=== PATIENT | female | born 1975 | race Caucasian/White ===

== ENCOUNTER → 2016-08-31 | Outpatient (CLI) | payer MEDICAID ==
[2016-08-31 08:45] LABS: Basophils % (A) 0 %; CH 29.4; CHCM 33.6; Eosinophils # (A) 0.2 k/uL (0-0.7); Eosinophils % (A) 3 %; HCT 42.5 % (34.0-46.0); HDW 2.46; HGB 13.8 gm/dL (11.4-16.0); Luc # (Auto) 0.22; Luc % (Auto) 3; Lymphocytes # (A) 2.5 k/uL (1.0-4.8); Lymphocytes % (A) 37 %; MCH 28.6 pg (25.0-35.0); MCHC 32.5 g/dL (31.0-37.0); Mean Platelet Volume 6.8; Monocytes # (A) 0.4 k/uL (0-1.0); Monocytes % (A) 5 %; Neutrophils # (A) 3.5 k/uL (1.3-7.7); Neutrophils % (A) 51 %; RBC 4.83 m/uL (3.80-5.40); RDW 12.8 % (11.5-15.5); WBC 6.7 k/uL (3.8-10.6); WBC (Perox) 7.01
[2016-08-31 09:12] LABS: ALT 30 U/L (9-52); AST 21 U/L (14-36); Alkaline Phosphatase 46 U/L (38-126); Anion Gap 11 mmol/L; Blood Urea Nitrogen 11 mg/dL (7-17); Calcium 9.6 mg/dL (8.4-10.2); Carbon Dioxide 25 mmol/L (22-30); Chloride 106 mmol/L (98-107); Cholesterol 223 mg/dL (<200); Glucose 97 mg/dL (74-99); HDL Cholesterol 54 mg/dL (40-60); Non-African American GFR(MDRD) >60 (>60 ml/min/1.73 sqM); Potassium 4.6 mmol/L (3.5-5.1); Sodium 142 mmol/L (137-145); Total Bilirubin 0.7 mg/dL (0.2-1.3); Total Protein 7.4 g/dL (6.3-8.2); Triglycerides 134 mg/dL (<150)
== END | disposition home or self-care (01) ==
LOC: LABWHC1 08:26
PROVIDERS: ATTEND Family Medicine
DX: Z00.01 Encounter for general adult medical examination with abnormal findings (principal); E78.2 Mixed hyperlipidemia
CPT/HCPCS: 36415; 80053; 80061; 85025

== ENCOUNTER 2020-04-07 11:10 | Emergency (ER) | payer MEDICAID, OTHER ==
[2020-04-07 11:18] VITALS: BP 132/89; PULSE 103; RESP 18; TEMP 97.9
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
== END 2020-04-07 11:53 | disposition home or self-care (01) ==
LOC: EC 11:10
DX: S00.83XA Contusion of other part of head, initial encounter (principal); Y04.8XXA Assault by other bodily force, initial encounter; Y92.69 Other specified industrial and construction area as the place of occurrence of the external cause; Y99.0 Civilian activity done for income or pay
CPT/HCPCS: 99283

== ENCOUNTER → 2020-09-06 | Outpatient (CLI) | payer MEDICAID ==
--- NOTE | 2020-09-07 02:34 | MR ---
EXAMINATION TYPE: MR hips BILAT wo con DATE OF EXAM: 09/06/2020 COMPARISON: 11/16/2010 HISTORY: Bilateral hip pain Multiplanar multiecho imaging of the hips and pelvis was performed without contrast. FINDINGS: The pelvic ring appears intact. The proximal femurs are intact. There is no evidence of hip dysplasia . Hip joint spaces are fairly symmetric. There is mixed signal 1.7 cm rounded lesion in the right fem oral neck which is stable compared to old exam and probably related to ossifying fibroma or bone eze nd. There is no evidence of avascular necrosis. Signal pattern in the femoral heads is normal. The bladder distends smoothly. There is no evidence of a pelvic mass. There is small amount of free f luid in the pelvis. This could be physiologic. Hip joint spaces are fairly well-maintained. There is no evidence of a fracture. I see no focal bone destruction. There is no evidence of a soft tissue mas s. Muscle structures are fairly symmetric. The sacroiliac joints appear normal. There is no evidence of any significant hip joint effusion. IMPRESSION: Negative MR scan of the hips. There is benign lesion in the right femoral neck. There is small amount of fluid in the pelvis that could be physiologic. There is clearing of the left side 3.5 cm pelvic cyst compared to old exam.
== END | disposition home or self-care (01) ==
LOC: RADMRIMAIN 06:55
PROVIDERS: ATTEND Orthopaedic Surgery
DX: M25.552 Pain in left hip (principal); M89.8X5 Other specified disorders of bone, thigh

== ENCOUNTER → 2020-09-27 | Outpatient (CLI) | payer MEDICAID ==
--- NOTE | 2020-09-28 07:34 | MR ---
EXAMINATION TYPE: MR lumbar spine wo con DATE OF EXAM: 09/27/2020 COMPARISON: [facility] MRI lumbar spine November 16, 2010 HISTORY: Low back pain and left hip pain for several years. TECHNIQUE: Multiplanar, multisequence imaging of the lumbar spine is performed without IV contrast. FINDINGS: Sagittal images of the lumbar spine show vertebral body heights to appear satisfactory. Sli ght grade 1 retrolisthesis L3 on L4 redemonstrated. There is disc desiccation L3-L4 and L4-L5 levels redemonstrated. Mild disc space narrowing L4-L5 level with posterior annular tear is redemonstrated. The conus medullaris is normal in position and signal ending inferior L1 level. There is slight cent ral canal prominence possible small syrinx at T12 level sagittal image 9 extending to T12-L1 disc spa ce axial image 27. Correlate clinically. This is unchanged from prior. Mild multilevel anterior spurr ing. Heterogeneous Modic type I and type II endplate changes right L4-L5 level are now present. Axial images at the T12-L1 through the L2-L3 levels remain within normal limits. Axial images at the L3-L4 level show subtle spondylolisthesis and mild to moderate broad disc bulge w ith tiny left paracentral disc protrusion component minimally effacing anterior thecal sac, there is a patent bilateral neural foramina. No significant change from prior. Axial images at the L4-L5 level show mild facet degenerative changes bilaterally. There is moderate b road disc bulge with mild effacement of the anterior and bilateral posterior lateral thecal sac and m ild to moderate bilateral neural foraminal narrowing with interval progressive degenerative findings noted from 2011 MRI. Axial images at L5-S1 level show mild to moderate facet degenerative changes bilaterally. There is le ft paracentral disc protrusion axial image 2 identified minimally effacing anterolateral thecal sac. Patent bilateral neural foramina. Interval degenerative progression noted. Paraspinal muscle bulk is maintained. IMPRESSION: Multilevel degenerative changes mid to lower lumbar spine as detailed above, interval deg enerative progression in the lower lumbar spine noted from 2011 MRI.
== END | disposition home or self-care (01) ==
LOC: RADMRIMAIN 16:37
PROVIDERS: ATTEND Physical Medicine & Rehabilitation
DX: M43.16 Spondylolisthesis, lumbar region (principal); M47.817 Spondylosis without myelopathy or radiculopathy, lumbosacral region; M51.27 Other intervertebral disc displacement, lumbosacral region; M99.73 Connective tissue and disc stenosis of intervertebral foramina of lumbar region; M51.36 Other intervertebral disc degeneration, lumbar region
CPT/HCPCS: 72148

== ENCOUNTER → 2020-11-08 | Outpatient (CLI) | payer MEDICAID ==
--- NOTE | 2020-11-08 10:33 | MR ---
EXAMINATION TYPE: MR thoracic spine wo/w con DATE OF EXAM: 11/08/2020 COMPARISON: 09/27/2020 HISTORY: Mid back pain, abnormal mri of lspine, syrnix CONTRAST: Standard multiplanar, multisequence MRI departmental protocol utilizing 9 mL intravenous Gadavist gisella olinium contrast. FINDINGS: T5-T6 there is a left paracentral disc protrusion or tiny herniation. Mild effacement of thecal sac a nd encroachment upon the anterior margin the spinal cord. At T7-T8 there is left paracentral disc protrusion. No foraminal encroachment or canal stenosis. At T9-T10 there is a small central and left paracentral disc herniation. No spinal cord contact. Mild thecal sac compression. No neural foraminal encroachment Remaining levels demonstrate no diagnostic evidence of disc herniation or canal stenosis. No foramina l encroachment. Incidental note is made of multiple sagittal disc bulges and degenerative disc disease within the cer vical spine. No abnormal signal seen within the visualized spinal cord post contrast images limited by motion narendra fact but no pathologic enhancement suspected. Prominent central canal noted. IMPRESSION: 1. At T5-T6 there is a left paracentral disc herniation with effacement of thecal sac encroachment up on the anterior margin of the spinal cord. 2.At T7-T8 there is left paracentral disc protrusion. No foraminal encroachment. No Canal stenosis. 3. At T9-T10 there is a small central left paracentral disc herniation. No canal stenosis or foramina l encroachment. 4. Signal noted within the distal spinal cord felt to be most typical of a prominent central canal. 5. Sagittal disc bulges within the cervical spine with degenerative disc disease noted.
== END | disposition home or self-care (01) ==
LOC: RADMRIMAIN 07:44
PROVIDERS: ATTEND Physical Medicine & Rehabilitation
DX: M51.24 Other intervertebral disc displacement, thoracic region (principal); M50.30 Other cervical disc degeneration, unspecified cervical region; M50.20 Other cervical disc displacement, unspecified cervical region
CPT/HCPCS: 72157; A9585

== ENCOUNTER → 2021-05-08 | Outpatient (CLI) | payer MEDICAID ==
--- NOTE | 2021-05-10 10:46 | MM ---
Reason for exam: screening (asymptomatic). Last mammogram was performed 1 year and 2 months ago. History: Taking estrogen for 10 years beginning at age 36. Physical Findings: A clinical breast exam by your physician is recommended on an annual basis and results should be correlated with mammographic findings. MG 3D Screening Mammo W/Cad Bilateral CC and MLO view(s) were taken. Prior study comparison: February 29, 2020, mammogram, performed at [facility]. January 05, 2019, mammogram, performed at [facility]. The breast tissue is heterogeneously dense. This may lower the sensitivity of mammography. There is chronic nodularity in the right breast, increased left MLO upper outer, may be summation. This finding is changed when compared with previous exams. ASSESSMENT: Incomplete: need additional imaging evaluation, BI-RAD 0 RECOMMENDATION: Special view mammogram of the left breast. If lesion persists on supplemental views, image directed ultrasound is recommended. [facility] will attempt to contact patient to return for supplemental views and ultrasound if indicated.
== END | disposition home or self-care (01) ==
LOC: RADMAMWWP 12:50
PROVIDERS: ATTEND Obstetrics & Gynecology
DX: Z12.31 Encounter for screening mammogram for malignant neoplasm of breast (principal)
CPT/HCPCS: 77063; 77067

== ENCOUNTER → 2021-05-14 | Outpatient (CLI) | payer MEDICAID ==
--- NOTE | 2021-05-14 10:23 | MM ---
Reason for exam: additional evaluation requested from abnormal screening. Last mammogram was performed less than 1 month ago. History: Taking estrogen for 10 years beginning at age 36. Physical Findings: Nurse did not find any significant physical abnormalities on exam. MG 3D Work Up W/Cad LT LM and spot compression MLO view(s) were taken of the left breast. Prior study comparison: May 08, 2021, bilateral MG 3d screening mammo w/cad. February 29, 2020, mammogram, performed at [facility]. There are scattered fibroglandular densities. There is no discrete abnormality. No significant new findings when compared with previous films. These results were verbally communicated with the patient and result sheet given to the patient on 05/14/21. ASSESSMENT: Negative, BI-RAD 1 RECOMMENDATION: Return to routine screening mammogram schedule for both breasts.
== END | disposition home or self-care (01) ==
LOC: RADMAMWWP 09:01
PROVIDERS: ATTEND Obstetrics & Gynecology
DX: R92.8 Other abnormal and inconclusive findings on diagnostic imaging of breast (principal)
CPT/HCPCS: 77061; 77065

== ENCOUNTER → 2022-01-05 | Outpatient (CLI) | payer OTHER | END | disposition home or self-care (01) | LOC: LABMAIN 13:36 | PROVIDERS: ATTEND Family Medicine | DX: U07.1 COVID-19 (principal) | CPT/HCPCS: 87635 ==

== ENCOUNTER → 2022-01-10 | Outpatient (CLI) | payer MEDICAID ==
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
== END | disposition home or self-care (01) ==
LOC: RADMRIMAIN 17:04
PROVIDERS: ATTEND Family Medicine
DX: M50.322 Other cervical disc degeneration at C5-C6 level (principal); M47.812 Spondylosis without myelopathy or radiculopathy, cervical region; M43.12 Spondylolisthesis, cervical region
CPT/HCPCS: 72141

== ENCOUNTER 2022-02-28 08:27 | Day surgery (SDC) | payer MEDICAID ==
[2022-02-26 14:42] VITALS: BMI 34.3
[~2022-02-28 08:27] MED LIST: LACTATED RINGERS 1,000 ML IV SCH; LIDOCAINE 1% (10MG/ML) FOR IV START INTRADERMA PRN
[2022-02-28 09:13] VITALS: RESP 16; TEMP 97.8
[2022-02-28] MEDS ORDERED: LIDOCAINE 1% (10MG/ML) FOR IV START INTRADERMA ONE (09:20)
[2022-02-28] MEDS ORDERED: MIDAZOLAM 2 MG/2 ML VIAL ONE (09:45)
[2022-02-28] MEDS ORDERED: fentaNYL (PF) 50 MCG/ML 2 ML AMP ONE (09:45)
[2022-02-28] MEDS ORDERED: IOPAMIDOL M200 10 ML VIAL ONE (09:45)
[2022-02-28] MEDS ORDERED: DEXAMETHASONE SOD PHOSPHATE 10 MG/ML 1 ML VIAL ONE (09:45)
[2022-02-28] MEDS ORDERED: IV FLUID CONTINUATION 1,000 ML IV ONE (10:06)
--- NOTE | 2022-02-28 10:09 | P.PCN ---
Date of Procedure: 02/28/22 Procedure(s) Performed: PREOPERATIVE DIAGNOSIS: 1-cervical radiculopathy . 2-cervical spinal stenosis. 3-cervical spondylosis with cervical facet arthropathy POSTOPERATIVE DIAGNOSIS: Same as preoperative diagnoses. PROCEDURE 1. Transforaminal epidural steroid injection under fluoroscopic guidance at left C5-6 level. (Fluoroscopy images stored on file in the radiology Department ) 2. Cervical epidurogram . ANESTHESIA: Local with 1% lidocaine 3 ml , moderate sedation with intravenous Versed 1 mg and fentanyle 50 micrograms. Sedation start time : 947 . Sedation. stop time : 100 . EBL: Minimal PROCEDURE INDICATION: The patient with neck pain and radiculopathy symptoms unresponsive to conservative treatment. PROCEDURE DESCRIPTION / TECHNIQUE: The patient was seen and identified in the preoperative area. Risks, benefits, complications, and alternatives were discussed with the patient. The patient agreed to proceed with the procedure and signed the consent. IV was started, and vital signs were stable. Patient was taken to the OR and time out was completed. The patient was placed in the lateral position on procedure table ( left side up ) . The left cervical area was prepped and draped in the usual sterile fashion. Critical pause was taken. Vital signs were closely monitored during the procedure. Conscious sedation was used during the procedure to decrease patient s anxiety. Using oblique fluoroscopy, the chin of the `SwatiTai dog at left C5-6 level was identified, and the skin and deeper tissues just below was localized with 1% lidocaine. Subsequently, a 22-gauge 3.5-inch spinal needle was advanced under a tunneled view fluoroscopic guidance just underneath the chin of the `Tiffaniey dog at the left C5-6 Under lateral fluoroscopy, the needle was then advanced to the posterior border of the interforaminal space. After negative aspiration of CSF and blood and with no paresthesias, 1 mL Isovue 200 contrast dye was injected excellent epidurogram and outlining of the nerve root Subsequently, 3 mL of block solution containing 20 mg Dexamethason and 1 mL of 0.9% normal saline PF was injected. Needle was removed intact. At the end of the procedure, skin was cleansed, and bandages were applied. COMPLICATIONS:none DISPOSITION / PLANS: The patient was placed in a supine position and transferred to the recovery area in a stable condition for observation. There was no evidence of lower extremity motor or sensory deficit after the procedure. Patient was discharged from the recovery room after meeting discharge criteria. Home discharge instructions were given to the patient by the staff. The patient was reexamined prior to discharge.
[2022-02-28 10:20] VITALS: BP 114/79; PULSE 73
--- NOTE | 2022-02-28 10:32 | FL ---
Intraoperative/procedural fluoroscopic services were provided. Total fluoroscopy time is 9 seconds wi th a total of 4 submitted images to PACS. Please see the operative/procedural note for further detail s.
== END 2022-02-28 10:38 ==
LOC: ORPAIN 08:27
PROVIDERS: ATTEND Specialist
DX: M47.22 Other spondylosis with radiculopathy, cervical region (principal); M48.02 Spinal stenosis, cervical region
CPT/HCPCS: 64479; 99152; J2250; J1100; J3010; Q9966

== ENCOUNTER → 2022-03-27 | Outpatient (CLI) | payer MEDICAID ==
--- NOTE | 2022-03-27 14:11 | XR ---
EXAMINATION TYPE: XR pelvis AP view DATE OF EXAM: 03/27/2022 1:58 PM INDICATION: Patient age:Female; 47 years old; Reason for study: [id number] LOW BACK PAIN; [facility]. COMPARISON: MRI bilateral hips 09/06/2020, right hip radiograph 10/07/2018. TECHNIQUE: The pelvis was examined in a single projection. FINDINGS: There is no evidence of fracture or dislocation. There is no soft tissue abnormality. Heter ogenous sclerotic lesion within the right femoral neck corresponds to a benign lesion on MRI. Pelvic phleboliths identified. IMPRESSION: 1. No acute osseous pathology. 2. Stable benign lesion within the right femoral neck.
[2022-03-27 18:45] LABS: Uric Acid 3.8 mg/dL (2.9-7.7)
[2022-03-27 20:58] LABS: Cyclic Citrull Pep IgG Unit <0.5 U/mL; Cyclic Citrullinated Pep IgG NEGATIVE (NEGATIVE)
[2022-03-28 10:58] LABS: HLA B27 NEGATIVE
[2022-03-28 12:50] LABS: Angiotensin-1 Converting Enz. 29 U/L (8-52)
== END | disposition home or self-care (01) ==
LOC: LABWHC1 11:24
PROVIDERS: ATTEND Internal Medicine Rheumatology
DX: M54.50 Low back pain, unspecified (principal); M13.0 Polyarthritis, unspecified
CPT/HCPCS: 36415; 72170; 82164; 82550; 83520; 84550; 86038; 86200; 86812

== ENCOUNTER 2022-04-04 07:46 | Day surgery (SDC) | payer MEDICAID ==
[2022-04-03 10:44] VITALS: BMI 33.9
[2022-04-04 08:11] VITALS: RESP 16; TEMP 98.1
[2022-04-04] MEDS ORDERED: DEXAMETHASONE SOD PHOSPHATE 10 MG/ML 1 ML VIAL ONE (08:36)
[2022-04-04] MEDS ORDERED: MIDAZOLAM 2 MG/2 ML VIAL ONE (08:36)
[2022-04-04] MEDS ORDERED: fentaNYL (PF) 50 MCG/ML 2 ML AMP ONE (08:36)
[2022-04-04] MEDS ORDERED: IOPAMIDOL M200 10 ML VIAL ONE (08:36)
--- NOTE | 2022-04-04 08:49 | P.PCN ---
Date of Procedure: 04/04/22 Procedure(s) Performed: . PROCEDURE 1. Cervical epidural steroid injection under fluoroscopic guidance, C5-6 (fluoroscopy images available in the radiology department ) 2. Cervical epidurogram. PREOPERATIVE DIAGNOSIS: 1- Cervical spinal stenosis 2- Cervical radiculopathy., 3-cervical spondylosis with cervical Facet arthropathy without myelopathy.4- cervical spinal stenosis POSTOPERATIVE DIAGNOSIS: : 1- Cervical spinal stenosis, 2- Cervical radiculopathy. 3-,cervical spondylosis with cervical Facet arthropathy without myelopathy. 4-cervical spinal stenosis ANESTHESIA: moderate sedation, with Versed 2 mg and Fentanyl 50 mcg. Sedation start time : 0 840 Sedation end time : 0 846 EBL 0 PROCEDURE INDICATION: The patient with neck pain and radiculitis unresponsive to conservative treatment consents for procedure. PROCEDURE DESCRIPTION / TECHNIQUE: The patient was seen and identified in the preoperative area. Risks, benefits, complications, including but not limited to infections ,bleeding , allergic reactions to the medications ,and not complete pain releife, and alternatives were discussed with the patient, the patient agreed to proceed with the procedure and signed the consent. Patient was taken to the OR and time out was completed. The patient was placed in the prone position on the procedure table. A pillow was placed under the patients chest to increase the cervical interlaminar space. The cervical area was prepped and draped in the usual sterile fashion. Vital signs were closely monitored during the procedure. Conscious sedation was used during the procedure to decrease patients anxiety. Using anterior-posterior fluoroscopy, the C5-6 interlaminar space was identified and the skin over this site was marked and then infiltrated with 1% lidocaine subcutaneously. Subsequently, a 20-gauge 3-1/2-inch Tuohy epidural needle was inserted and advanced toward the epidural space by means of the ``hanging-drop technique and guided by AP and lateral fluoroscopy. The correct needle position in the epidural space was verified with the injection of 1 mL of the water soluble contrast dye Isovue-200 and observing an excellent epidurogram with the epidural spread of the dye, after negative aspiration for blood and CSF and in the absence of paresthesias. then, mixture containing 20 mg Dexamethasone and1 ml of preservative-free normal saline injected and a washout of epidurogram was seen. Needle was withdrawn intact, skin was cleansed, and bandages were applied. Complications= none. Disposition= patient was placed in supine position and transferred to the recovery room area in stable condition and there was no evidence of upper or lower extremity motor or sensory deficit after the procedure patient was discharged from recovery room after discharge criteria met and home discharge instructions was given by the staff and patient will follow with the pain clinic in 2-4 weeks
[2022-04-04] MEDS ORDERED: IV FLUID CONTINUATION 1,000 ML IV ONE (08:52)
[2022-04-04 09:09] VITALS: BP 122/84; PULSE 75
--- NOTE | 2022-04-04 12:59 | FL ---
EXAMINATION TYPE: FL guided pain mgmt statistic DATE OF EXAM: 04/04/2022 FLUOROSCOPY Fluoroscopy time of 2 seconds was used during cervical epidural steroid injection. 1 image/s documen t/s the procedure.
== END 2022-04-04 09:21 | disposition home or self-care (01) ==
LOC: ORPAIN 07:46
PROVIDERS: ATTEND Specialist
DX: M48.02 Spinal stenosis, cervical region (principal); M47.22 Other spondylosis with radiculopathy, cervical region
CPT/HCPCS: 62321; J2250; J1100; J3010; Q9966

== ENCOUNTER → 2022-04-24 | Outpatient (CLI) | payer MEDICAID ==
[2022-04-24 08:16] VITALS: BP 120/87; PULSE 94; RESP 18; TEMP 98.5
--- NOTE | 2022-04-24 14:40 | P.PAINPG ---
PQRS Measure Charge Sheet Comment: A 47 yr old female with a history of severe and chronic neck pain secondary to cervical DDD and spondylosis with facet arthropathy without myelopathy presents today for evaluation s/p ELIGIO C5-C6. Pt states she received 100% pain relief x 5 days s/p procedure. Pain level is currently at 3/10 in intensity, constant, localized in the numbness shooting towards L shoulder, arms & fingers. Pain is provoked by lifting and rotating. Pain is alleviated with Pt x 5 wks, massage therapy integrated w PT, chiropractic treatment x 2 visits for readjustments, heat, ice, medications (Celebrex, Neurontin), repositioning and rest. Interventional pain procedures completed include ELIGIO C5-C6 Patient is currently on Celebrex, Neurontin Patient denies any side effects of the medication(s), denies excessive drowsiness or sleepiness, denies suicidal ideation and reports that the current pain medication is helping to control the pain and improve activities of daily living. Patient denies any motor or sensory deficits. Patient denies any fever or night sweats, denies any change in the bowel movements or urination. Physical Examination: -Constitutional: Cooperative. Not in acute distress . - Neurologic: Cranial nerve II to XII intact. No focal neurological deficits. - Psychatric: Alert & oriented x 3. Matching mood & appropriate affect. Judgment and insight intact. - Musculoskeletal: Cervical spine: Muscle bulk/ tone/ strength in the bilateral upper extremities normal Vertebral body tenderness to palpation over Spurling test positive Distraction test positive Facet loading test positive tingling over L C4-C5, C5-C6 facets Thoracic spine Muscle bulk / tone/ strength in the bilateral paraspinal muscles normal Vertebral body tender to palpation over Facet loading test positive Lumbar spine: Motor bulk/ tone/ strength lower extremities , thigh and legs : 5/5 Deep tendon reflexes : Normal Knee Jerk. Normal Ankle Jerk . Vertebral body tenderness to palpation over Lumbar Facet Loading Test positive Straight Leg Raise: positive at 30 degrees right side/ left side Gaenslen's Test positive Sacral spine : Severe tenderness over the Sacroiliac joint: right side / left side Range of motion: Flexion of the lumbar spine <60 degrees Range of motion: Extension of the lumbar spine <20 degrees Gaenslen's Test positive Sheela test: positive right side / left side Thigh Thrust Test Sacral Thrust Test Assessment and plan: Chronic neck pain secondary to cervical degenerative disc disease, spondylosis with facet arthropathy without myelopathy Recommendation of L MBB C4-C5, C5-C6 #1. May need a series of injections, up until RFA, for optimal pain relief. Risks, benefits of procedure discussed and pt verbalized understanding. Admits to anticoagulant use or medical history of diabetes. Protocol for discontinuation/ continuation of medications winsome procedure discussed. All patient questions answered I have spent less than 30 minutes on patient care today. Dr Peres was available by phone for the evaluation of this patient. The time was used to review the medical records including relevant urine studies and Prescription history (MAPs), review of the available imaging, evaluation and examination of the patient, coordination of care with the medical staff and if applicable referring physicians, as well as creation of the medical record PQRS Narrative: Hx Alcohol Use (MH) No Home Medications: Ambulatory Orders Ashlyna 1 tab PO DAILY 02/26/22 Aspirin [[place] Aspirin EC] 81 mg PO DAILY 02/26/22 Atorvastatin [Lipitor] 20 mg PO DAILY 02/26/22 Celecoxib [CeleBREX] 200 mg PO BID 02/26/22 Cholecalciferol (Vitamin D3) [Vitamin D3 (125 MCG = 5,000 IU)] 125 mcg PO DAILY 02/26/22 Famotidine [Pepcid] 20 mg PO DAILY 02/26/22 Fexofenadine HCl [Audra Allergy] 180 mg PO DAILY 02/26/22 Gabapentin [Neurontin] 300 mg PO BID 02/26/22 Losartan Potassium [Cozaar] 100 mg PO DAILY 02/26/22 Pantoprazole [Protonix] 40 mg PO DAILY 02/26/22 hydroCHLOROthiazide 12.5 mg PO DAILY 02/26/22 Controlled Substance Measures - Controlled Substance Measures Is patient prescribed a controlled substance at discharge?: No
== END ==
LOC: PNWHC3 07:43
PROVIDERS: ATTEND Specialist
DX: M47.812 Spondylosis without myelopathy or radiculopathy, cervical region (principal); M50.30 Other cervical disc degeneration, unspecified cervical region; G89.29 Other chronic pain; Z79.01 Long term (current) use of anticoagulants; E11.9 Type 2 diabetes mellitus without complications; Z79.4 Long term (current) use of insulin
CPT/HCPCS: 99211

== ENCOUNTER → 2022-05-10 | Outpatient (CLI) | payer MEDICAID ==
--- NOTE | 2022-05-10 18:43 | MM ---
Reason for Exam: Screening (asymptomatic). Last mammogram was performed 1 year(s) and 1 month(s) ago. Patient History: Menarche at age 11. First Full-Term at age 22. Hysterectomy at age 36. Currently using Estrogen, beginning at age 36 for 10 years. Risk Values: Evelia 5 year model risk: 0.8%. NCI Lifetime model risk: 8.3%. Prior Study Comparison: 02/29/2020 Screening Mammogram, [facility]. 05/08/2021 Bilateral Screening Mammogram, [facility]. 05/14/2021 Left Diagnostic Mammogram, [facility]. Tissue Density: The breast tissue is heterogeneously dense. This may lower the sensitivity of mammography. Findings: Analyzed By CAD. Asymmetric density superior left MLO view is unchanged from the 2020 exam and does not persist on 3-D images. There is also no correlate on the CC view. Findings compatible with superimposition shadow. No significant change from prior exams. Overall Assessment: Benign, BI-RAD 2 Management: Screening Mammogram of both breasts in 1 year. 1. Patient should continue monthly self breast exams. 2. A clinical breast exam by your physician is recommended on an annual basis. 3. This exam should not preclude additional follow-up of suspicious palpable abnormalities. Electronically signed and approved by: Milla Kearns M.D. Radiologist
== END | disposition home or self-care (01) ==
LOC: RADMAMWWP 06:55
PROVIDERS: ATTEND Obstetrics & Gynecology
DX: Z12.31 Encounter for screening mammogram for malignant neoplasm of breast (principal)
CPT/HCPCS: 77063; 77067

== ENCOUNTER → 2022-08-28 | Outpatient (CLI) | payer MEDICAID ==
[2022-08-28 10:01] VITALS: BP 127/87; PULSE 86; RESP 18; TEMP 98.1
--- NOTE | 2022-08-28 14:38 | P.PAINPG ---
PQRS Measure Charge Sheet Comment: A 47 yr old female with a history of severe and chronic neck pain secondary to cervical DDD and spondylosis with facet arthropathy without myelopathy presents today for evaluation s/p L facet block of the medial branches C4-C5, C5-C6 #1. Pt states she experienced 90 % pain relief x 3 hrs s/p procedure. Pain level is provoked at 6/10 in intensity, constant, localized in the mid to lower BL cervical spine, sore in character w shooting towards the L shoulder, L clavicle and LUE. Pain is provoked by hyperextension. Pain is alleviated with Pt x 4-6 wks in Jan 2022, massage integrated w PT, Ultrasound integrated w PT, chiropractic treatment x 1 in Dec 2021, heat, medications (Celebrex, Neurontin), repositioning and rest. Interventional pain procedures completed include L MBB C4-C6 x1 Patient is currently on Neurontin, Celebrex Patient denies any side effects of the medication(s), denies excessive rasheed wsiness or sleepiness, denies suicidal ideation and reports that the current pain medication is helping to control the pain and improve activities of daily living. Patient denies any motor or sensory deficits. Patient denies any fever or night sweats, denies any change in the bowel movements or urination. Physical Examination: -Constitutional: Cooperative. Not in acute distress . - Neurologic: Cranial nerve II to XII intact. No focal neurological deficits. - Psychatric: Alert & oriented x 3. Matching mood & appropriate affect. Judgment and insight intact. - Musculoskeletal: Cervical spine: Muscle bulk/ tone/ strength in the bilateral upper extremities normal Vertebral body tenderness to palpation over Spurling test positive Distraction test positive Facet loading test positive TTP over L C4-C5, C5-C6 facets Thoracic spine Muscle bulk / tone/ strength in the bilateral paraspinal muscles normal Vertebral body tender to palpation over Facet loading test positive TTP Lumbar spine: Motor bulk/ tone/ strength lower extremities , thigh and legs : 5/5 Deep tendon reflexes : Normal Knee Jerk. Normal Ankle Jerk . Vertebral body tenderness to palpation over Lumbar Facet Loading Test positive Straight Leg Raise: positive at 30 degrees right side/ left side Gaenslen's Test positive Sacral spine : Severe tenderness over the Sacroiliac joint: right side / left side Range of motion: Flexion of the lumbar spine <60 degrees Range of motion: Extension of the lumbar spine <20 degrees Gaenslen's Test positive R / L Sheela test: positive right side / left side Thigh Thrust Test positive R / L Sacral Thrust Test positive R/ L Assessment and plan: Chronic neck pain secondary to cervical DDD, spondylosis with facet arthropathy without myelopathy Recommendation of L facet block of the medial branches C4-C5, C5-C6 #2. May need a series fo injections, up until RFA, for optimal pain relief. Risks, benefits of procedure discussed and pt verbalized understanding. Admits to anticoagulant use or medical history of diabetes. Protocol for discontinuation/ continuation of medications winsome procedure discussed. All questions answered. I have spent less than 30 minutes on patient care today. Dr Peres was available by phone for the evaluation of this patient. The time was used to review the medical records including relevant urine studies and Prescription history (MAPs), review of the available imaging, evaluation and examination of the patient, coordination of care with the medical staff and if applicable referring physicians, as well as creation of the medical record PQRS Narrative: Hx Alcohol Use (MH) No Home Medications: Ambulatory Orders Ashlyna 1 tab PO DAILY 02/26/22 Aspirin [[place] Aspirin EC] 81 mg PO DAILY 02/26/22 Atorvastatin [Lipitor] 20 mg PO DAILY 02/26/22 Celecoxib [CeleBREX] 200 mg PO BID 02/26/22 Cholecalciferol (Vitamin D3) [Vitamin D3 (125 MCG = 5,000 IU)] 125 mcg PO DAILY 02/26/22 Fexofenadine HCl [Audra Allergy] 180 mg PO DAILY 02/26/22 Gabapentin [Neurontin] 300 mg PO BID 02/26/22 Losartan Potassium [Cozaar] 100 mg PO DAILY 02/26/22 Pantoprazole [Protonix] 40 mg PO DAILY 02/26/22 hydroCHLOROthiazide 25 mg PO DAILY 02/26/22 Controlled Substance Measures - Controlled Substance Measures Is patient prescribed a controlled substance at discharge?: No
== END ==
LOC: PNWHC3 09:28
PROVIDERS: ATTEND Specialist
DX: M50.30 Other cervical disc degeneration, unspecified cervical region (principal); M47.812 Spondylosis without myelopathy or radiculopathy, cervical region; G89.29 Other chronic pain; Z79.82 Long term (current) use of aspirin
CPT/HCPCS: 99211

== ENCOUNTER 2022-09-24 07:21 | Day surgery (SDC) | payer MEDICAID ==
[2022-09-18 13:59] VITALS: BMI 33.4
[2022-09-24] MEDS ORDERED: LACTATED RINGERS 1,000 ML IV SCH (07:47)
[2022-09-24] MEDS ORDERED: LIDOCAINE 1% (10MG/ML) FOR IV START INTRADERMA PRN (07:47)
[2022-09-24 07:57] VITALS: TEMP 97
[2022-09-24] MEDS ORDERED: LACTATED RINGERS 1,000 ML IV ONE (08:04)
[2022-09-24] MEDS ORDERED: fentaNYL (PF) 50 MCG/ML 2 ML AMP ONE (08:42)
[2022-09-24] MEDS ORDERED: ROPIVACAINE 5 MG/ML 20 ML AMPULE ONE (08:42)
[2022-09-24] MEDS ORDERED: methylPREDNISolone ACETATE 40 MG/ML 1 ML VIAL ONE (08:42)
[2022-09-24] MEDS ORDERED: MIDAZOLAM 2 MG/2 ML VIAL ONE (08:42)
--- NOTE | 2022-09-24 09:00 | P.PCN ---
Date of Procedure: 09/24/22 Procedure(s) Performed: PREOPERATIVE DIAGNOSIS: 1-Cervical Spondylosis with Facet Arthropathy.without myelopathy. 2-cervical degenerative disc disease POSTOPERATIVE DIAGNOSIS:1-cervical spondylosis with facet arthropathy without myelopathy. 2-cervical degenerative disc disease PROCEDURES: Diagnostic bilateral Left C4 , C5 , and C6 medial branch blocks, with fluoroscopic guidance (fluoroscopy images available in radiology department ) ( to target the facet joint at bilateral Left C4- 5 , C5- 6 ) ANESTHESIA: moderate sedation with Versed 2 mg , and fentanyl 50 micrograms Sedation the started at 0 847, ended at 0856 EBL: Minimal PROCEDURE INDICATION: The patient with neck pain secondary to cervical arthropathy unresponsive to more conservative treatments. PROCEDURE DESCRIPTION / TECHNIQUE: The patient was seen and identified in the preoperative area. Risks, benefits, complications, and alternatives were discussed with the patient, the patient agreed to proceed with the procedure and signed the consent. IV was started. Vital signs remained stable throughout the procedure. Patient was taken to the OR and time out was completed. The patient was placed in the Lateral position ( left side up ) on the procedure table. . The cervical area was prepped and draped in the usual sterile fashion. Critical pause was taken. Vital signs were closely monitored during the procedure. Conscious sedation was used during the procedure to decrease patients anxiety. Using cross-table lateral fluoroscopy, the centroid of the trapezoid of Left C4 , C5 and C6, was identified, marked, and localized with 1% lidocaine 1 ml at each level for skin and Sub Q infiltrations . Subsequently, a 22 G 3 spinal needle was advanced guided by fluoroscopy to the centroid of the trapezoid of Left C4 , C5, C6 . [place] tip position was confirmed at the centroid of the trapezoids of Left C4 , C5 ,C6 with anteroposterior fluoroscopy. Subsequently, 2 ml of preservative-free Ropivacaine 0.5% mixed with Depo-Medrol 40 mg and half ml of the mixture was injected after negative aspiration for blood and CSF. [place] was then removed intact COMPLICATIONS: No acute complications. COMMENTS: DISPOSITION / PLANS: The patient was placed in a supine position and transferred to the recovery area in a stable condition for observation and was discharged from the recovery room after meeting discharge criteria. Home discharge instructions given to the patient by the staff. The patient was reexamined prior to discharge. The patient will schedule a follow up in the clinic in 2-4 weeks.
[2022-09-24] MEDS ORDERED: IV FLUID CONTINUATION 1,000 ML IV ONE (09:02)
[2022-09-24 09:09] VITALS: RESP 16
--- NOTE | 2022-09-24 09:09 | FL ---
Intraoperative/procedural fluoroscopic services were provided. Total fluoroscopy time is 7 seconds wi th a total of 2 submitted images to PACS. Please see the operative/procedural note for further detail s. DAP: [id number]
[2022-09-24 09:27] VITALS: BP 121/71; PULSE 82
== END 2022-09-24 09:47 | disposition home or self-care (01) ==
LOC: ORPAIN 07:21
PROVIDERS: ATTEND Specialist
DX: M50.321 Other cervical disc degeneration at C4-C5 level (principal); M50.322 Other cervical disc degeneration at C5-C6 level; M47.812 Spondylosis without myelopathy or radiculopathy, cervical region
CPT/HCPCS: 64490; 64491; J2250; J1030; J3010; J2795

== ENCOUNTER → 2022-10-17 | Outpatient (CLI) | payer MEDICAID ==
[2022-10-17 08:57] VITALS: BP 116/83; PULSE 83; RESP 18; TEMP 98.6
--- NOTE | 2022-10-17 14:11 | P.PAINPG ---
PQRS Measure Charge Sheet Comment: A 47 yr old female with a history of severe and chronic neck pain secondary to cervical DDD and spondylosis with facet arthropathy without myelopathy presents today for evaluation s/p L facet block of the medial branches C4-C5, C5-C6 #2. Pt states she experienced 100% pain relief x 10 days s/p procedure. Pain level is provoked at 0/10 in intensity. Pt denies provocative factors. Admits that the injections palliated pain completely at this time. Interventional pain procedures completed include L MBB C4-C6 x2 Patient is currently on DENIES Patient denies any side effects of the medication(s), denies excessive drowsiness or sleepiness, denies suicidal ideation and reports that the current pain medication is helping to control the pain and improve activities of daily living. Patient denies any motor or sensory deficits. Patient denies any fever or night sweats, denies any change in the bowel movements or urination. Physical Examination: -Constitutional: Cooperative. Not in acute distress . - Neurologic: Cranial nerve II to XII intact. No focal neurological deficits. - Psychatric: Alert & oriented x 3. Matching mood & appropriate affect. Judgment and insight intact. - Musculoskeletal: Cervical spine: Muscle bulk/ tone/ strength in the bilateral upper extremities normal Vertebral body tenderness to palpation over Spurling test positive Distraction test positive Facet loading test positive TTP Thoracic spine Muscle bulk / tone/ strength in the bilateral paraspinal muscles normal Vertebral body tender to palpation over Facet loading test positive TTP Lumbar spine: Motor bulk/ tone/ strength lower extremities , thigh and legs : 5/5 Deep tendon reflexes : Normal Knee Jerk. Normal Ankle Jerk . Vertebral body tenderness to palpation over Lumbar Facet Loading Test positive Straight Leg Raise: positive at 30 degrees right side/ left side Gaenslen's Test positive Sacral spine : Severe tenderness over the Sacroiliac joint: right side / left side Range of motion: Flexion of the lumbar spine <60 degrees Range of motion: Extension of the lumbar spine <20 degrees Gaenslen's Test positive R / L Sheela test: positive right side / left side Thigh Thrust Test positive R / L Sacral Thrust Test positive R/ L Assessment and plan: Chronic neck pain secondary to cervical DDD, spondylosis with facet arthropathy without myelopathy Pt will monitor her symptoms and may return to clinic on an as needed basis. All questions answered. I have spent less than 30 minutes on patient care today. Dr Peres was available by phone for the evaluation of this patient. The time was used to review the medical records including relevant urine studies and Prescription history (MAPs), review of the available imaging, evaluation and examination of the patient, coordination of care with the medical staff and if applicable referring physicians, as well as creation of the medical record PQRS Narrative: Hx Alcohol Use (MH) No Home Medications: Ambulatory Orders Ashlyna 1 tab PO DAILY 02/26/22 Aspirin [[place] Aspirin EC] 81 mg PO DAILY 02/26/22 Atorvastatin [Lipitor] 20 mg PO DAILY 02/26/22 Celecoxib [CeleBREX] 200 mg PO BID 02/26/22 Cholecalciferol (Vitamin D3) [Vitamin D3 (125 MCG = 5,000 IU)] 125 mcg PO DAILY 02/26/22 Fexofenadine HCl [Audra Allergy] 180 mg PO DAILY 02/26/22 Gabapentin [Neurontin] 300 mg PO BID 02/26/22 Losartan Potassium [Cozaar] 100 mg PO DAILY 02/26/22 Pantoprazole [Protonix] 40 mg PO DAILY 02/26/22 hydroCHLOROthiazide 25 mg PO DAILY 02/26/22 Controlled Substance Measures - Controlled Substance Measures Is patient prescribed a controlled substance at discharge?: No
== END ==
LOC: PNWHC3 07:46
PROVIDERS: ATTEND Specialist
DX: M50.30 Other cervical disc degeneration, unspecified cervical region (principal); M47.812 Spondylosis without myelopathy or radiculopathy, cervical region
CPT/HCPCS: 99211

== ENCOUNTER 2022-12-27 08:11 | Day surgery (SDC) | payer MEDICAID ==
[2022-12-27 08:25] VITALS: RESP 18; TEMP 97.3
[2022-12-27] MEDS ORDERED: ROPIVACAINE 5 MG/ML 20 ML AMPULE ONE (09:31)
[2022-12-27] MEDS ORDERED: methylPREDNISolone ACETATE 40 MG/ML 1 ML VIAL ONE (09:31)
[2022-12-27] MEDS ORDERED: MIDAZOLAM 2 MG/2 ML VIAL ONE (09:32)
[2022-12-27] MEDS ORDERED: fentaNYL (PF) 50 MCG/ML 2 ML AMP ONE (09:32)
--- NOTE | 2022-12-27 09:56 | P.PCN ---
Date of Procedure: 12/27/22 Procedure(s) Performed: PREOPERATIVE DIAGNOSIS: Cervical spondylosis with Facet Arthropathy without myelopathy. POSTOPERATIVE DIAGNOSIS: Cervical spondylosis with Facet Arthropathy without myelopathy. PROCEDURES: Radiofrequency thermocoagulation, left C4, C5, C6 medial branch with Fluroscopy [place](fluoroscopy was available in Radiology department ) (to denervate the facet joint at left C4- 5 , C5- 6 ) ANESTHESIA: Monitored anesthesia care as per anesthesia department . EBL: Minimal PROCEDURE INDICATION: The patient with neck pain secondary to cervical arthropathy who had more than 50% relief of her pain with previous diagnostic cervical medial branch block. PROCEDURE DESCRIPTION / TECHNIQUE: The patient was seen and identified in the preoperative area. Risks, benefits, complications, and alternatives were discussed with the patient, the patient agreed to proceed with the procedure and signed the consent. IV was started. Vital signs remained stable throughout the procedure. Patient was taken to the OR and time out was completed. The patient was placed in the lateral position on the procedure table ( left side up ). The cervical area was prepped and draped in the usual sterile fashion. Critical pause was taken. Vital signs were closely monitored during the procedure. Conscious sedation was used during the procedure to decrease patients anxiety. Using cross-table lateral fluoroscopy, the centroid of the trapezoid of left C4, C5, and C6 were identified, marked, and localized with 1% lidocaine. Subsequently, a 20 [id number] radiofrequency cannula with a 10-mm active tip was advanced guided by fluoroscopy to the centroid of the trapezoid of left C4, C5, and C6 . Needle tip position was confirmed at the centroid of the trapezoids of left C4, C5, and C6 with anteroposterior fluoroscopy. Each site then underwent sensory testing at 50 Hz and 0 to 1 volt and motor testing at 2 Hz and 0 to 3 volt with local stimulation, but no radicular symptoms down the arm. Thereafter each sites underwent radiofrequency thermocoagulation at 80 degrees celsius for 90 seconds after injecting 0.5 ml of PF Ropivacaine 0.5 %. After thermocoagulation, 1 ml of the block solution containing Depo-Medrol 40 mg and 3 mL of preservative-free normal saline was injected at the left C4, C5, and C6 levels after negative aspiration of CSF and blood and with no paresthesias. Cannulas were retracted while injecting lidocaine 1% until the needle is out. Skin was cleansed and bandages were applied. COMPLICATIONS: No acute complications. DISPOSITION / PLANS: The patient was placed in a supine position and transferred to the recovery area in a stable condition for observation and was discharged from the recovery room after meeting discharge criteria. Home discharge instructions given to the patient by the staff. The patient was reexamined prior to discharge. The patient will schedule a follow up in the clinic in 2-4 weeks.
[2022-12-27] MEDS ORDERED: IV FLUID CONTINUATION 900 ML IV ONE (09:57)
[2022-12-27 10:39] VITALS: BP 134/78; PULSE 67
--- NOTE | 2022-12-27 11:05 | FL ---
Fluoroscopy History: NECK PAIN FL time: 8 secs DAP: .[id number]
== END 2022-12-27 10:39 | disposition home or self-care (01) ==
LOC: ORPAIN 08:11
PROVIDERS: ATTEND Specialist
DX: M47.812 Spondylosis without myelopathy or radiculopathy, cervical region (principal); I10 Essential (primary) hypertension; E78.5 Hyperlipidemia, unspecified; K21.9 Gastro-esophageal reflux disease without esophagitis; J45.909 Unspecified asthma, uncomplicated; E11.9 Type 2 diabetes mellitus without complications; Z79.899 Other long term (current) drug therapy
CPT/HCPCS: 64633; 64634; J2250; J1030; J3010; J2795

== ENCOUNTER → 2023-01-20 | Outpatient (CLI) | payer MEDICAID ==
--- NOTE | 2023-01-20 07:58 | P.PN ---
Subjective Progress Note Date: 01/20/23 This follow-up visit for 47 yr old female with a history of severe and chronic neck pain secondary to cervical DDD, and spondylosis with facet arthropathy without myelopathy presents today for evaluation s/p RFA Left medial branches C4-C5, C5-C6 . Pt states she experienced 100% pain relief s/p procedure. Interventional pain procedures completed include RFA L MBB C4-C5, C5-6 Patient is currently on DENIES Patient denies any side effects of the medication(s), denies excessive drowsiness or sleepiness, denies suicidal ideation and reports that the current pain medication is helping to control the pain and improve activities of daily living. Patient denies any motor or sensory deficits. Patient denies any fever or night sweats, denies any change in the bowel movements or urination. Physical Examination: -Constitutional: Cooperative. Not in acute distress . - Neurologic: Cranial nerve II to XII intact. No focal neurological deficits. - Psychatric: Alert & oriented x 3. Matching mood & appropriate affect. Judgment and insight intact. - Musculoskeletal: Cervical spine: Range of motion within normal limits Assessment and plan: Chronic neck pain secondary to cervical DDD, spondylosis with facet arthropathy without myelopathy Patient did 100% pain relief after RFA of the medial branches cervical area Left side , she will follow up in the pain clinic when necessary PQRS Narrative: Hx Alcohol Use (MH) No Home Medications: Ambulatory Orders Ashlyna 1 tab PO DAILY 02/26/22 Aspirin [[place] Aspirin EC] 81 mg PO DAILY 02/26/22 Atorvastatin [Lipitor] 20 mg PO DAILY 02/26/22 Celecoxib [CeleBREX] 200 mg PO BID 02/26/22 Cholecalciferol (Vitamin D3) [Vitamin D3 (125 MCG = 5,000 IU)] 125 mcg PO DAILY 02/26/22 Fexofenadine HCl [Audra Allergy] 180 mg PO DAILY 02/26/22 Gabapentin [Neurontin] 300 mg PO BID 02/26/22 Losartan Potassium [Cozaar] 100 mg PO DAILY 02/26/22 Pantoprazole [Protonix] 40 mg PO DAILY 02/26/22 hydroCHLOROthiazide 25 mg PO DAILY 02/26/22 Controlled Substance Measures - Controlled Substance Measures Is patient prescribed a controlled substance at discharge?: No Objective - Vital Signs Vital signs: Intake & Output 01/19/23 01/20/2323 18:59 06:59 18:59 Weight 195 kg
[2023-01-20 08:01] VITALS: BP 129/85; PULSE 98; RESP 15; TEMP 97.2
== END ==
LOC: PNWHC3 07:42
PROVIDERS: ATTEND Specialist
DX: M50.30 Other cervical disc degeneration, unspecified cervical region (principal); M47.812 Spondylosis without myelopathy or radiculopathy, cervical region; G89.29 Other chronic pain; Z79.82 Long term (current) use of aspirin
CPT/HCPCS: 99211

== ENCOUNTER → 2023-05-15 | Outpatient (CLI) | payer MEDICAID ==
--- NOTE | 2023-05-18 18:26 | MM ---
Reason for Exam: Screening (asymptomatic). Last screening mammogram was performed 12 month(s) ago. Patient History: Menarche at age 11. First Full-Term at age 22. Hysterectomy at age 36. Currently using Estrogen, beginning at age 36 for 10 years. Risk Values: Evelia 5 year model risk: 0.8%. NCI Lifetime model risk: 8.2%. Prior Study Comparison: 05/08/2021 Bilateral Screening Mammogram, [facility]. 05/14/2021 Left Diagnostic Mammogram, [facility]. 05/10/2022 Bilateral MG 3D screening mammo w/cad, [facility]. Tissue Density: The breast tissue is heterogeneously dense. This may lower the sensitivity of mammography. Findings: Analyzed By CAD. Chronic nodularity in the right breast. Unchanged area of asymmetric density superiorly in the left breast. There is no suspicious group of microcalcifications or new suspicious mass in either breast. Overall Assessment: Benign, BI-RAD 2 Management: Screening Mammogram of both breasts in 1 year. . Patient should continue monthly self-breast exams. A clinical breast exam by your physician is recommended on an annual basis. This exam should not preclude additional follow-up of suspicious palpable abnormalities. Note on Evelia scores and lifetime risk: 1. A Evelia score greater than 3% is considered moderate risk. If this is the case, consider specialist referral to assess eligibility for a risk reducing agent. 2. If overall lifetime risk for the development of breast cancer is 20% or higher, the patient may qualify for future screening with alternating mammogram and breast MRI. Electronically signed and approved by: Milla Kearns M.D. Radiologist
== END | disposition home or self-care (01) ==
LOC: RADMAMWWP 09:41
PROVIDERS: ATTEND Obstetrics & Gynecology
DX: Z12.31 Encounter for screening mammogram for malignant neoplasm of breast (principal)
CPT/HCPCS: 77063; 77067

== ENCOUNTER → 2023-06-04 | Outpatient (CLI) | payer MEDICAID ==
--- NOTE | 2023-06-05 13:01 | MR ---
EXAMINATION TYPE: MR cervical spine wo con DATE OF EXAM: 06/04/2023 COMPARISON: 01/10/2022 HISTORY: Neck pain into left shoulder to left fingers, Headaches TECHNIQUE: Multiplanar, multisequence images of the cervical spine were acquired without contrast. Findings: Craniovertebral junction relationships and prevertebral soft tissues are normal. The cervical vertebral segments are normal in height and alignment. There is mild degenerative disc disease at the C3-4, C4-5, C5-6 and C6-7 levels with there is mild di sc space narrowing and posterior disc bulge and spondylosis. There is no cervical disc herniation. Secondary to prominent hypertrophic spurring posteriorly, there is mild cervical stenosis at the C5-6 level. There is prominent hypertrophic spurring of the uncovertebral joints at the C3-4 and C4-5 levels on t he left resulting in moderate to severe neural foraminal stenosis. Similar changes result in mild to moderate neural foraminal stenosis at C5-6 bilaterally. The cervical cord is normal in size and signal intensity. The paraspinal soft tissues are unremarkable. Comparison the prior study reveals no significant interval change. IMPRESSION: 1. Mild multilevel degenerative disc disease. 2. No cervical disc herniation. 3 degeneration of the uncovertebral joints resulting in moderate to severe neural foraminal stenosis , left greater than right, as described above. 4. Normal cervical cord. 5. Mild cervical stenosis at C5-6. 6. No interval change.
== END | disposition home or self-care (01) ==
LOC: RADMRIMAIN 20:45
PROVIDERS: ATTEND Orthopaedic Surgery
DX: M48.02 Spinal stenosis, cervical region (principal); M99.71 Connective tissue and disc stenosis of intervertebral foramina of cervical region; M50.30 Other cervical disc degeneration, unspecified cervical region
CPT/HCPCS: 72141

== ENCOUNTER → 2024-03-29 | Outpatient (CLI) | payer MEDICAID ==
--- NOTE | 2024-03-29 22:12 | MR ---
EXAMINATION TYPE: MR knee LT wo con DATE OF EXAM: 03/29/2024 COMPARISON: NONE HISTORY: Medial pain left knee since December 2023 injury. TECHNIQUE: Multiplanar, multisequence images of the knee is performed without IV contrast. FINDINGS: MEDIAL MENISCUS: Oblique signal posterior horn extending to inferior articular surface. LATERAL MENISCUS: Anterior and posterior horns are intact without tear. CRUCIATE LIGAMENTS: The anterior and posterior cruciate ligaments are intact and unremarkable. COLLATERAL LIGAMENTS: The medial collateral ligament and lateral collateral ligament complex are inta ct. Some fluid signal surrounds the medial collateral ligament. EXTENSOR MECHANISM: Visualized quadriceps and patellar tendons are intact. EFFUSION: Small to moderate size suprapatellar joint effusion. POPLITEAL CYST: Small to moderate size slightly septated popliteal/silveira cyst extending medially raghavendra uring 3.0 cm craniocaudal dimension sagittal image 17. TRICOMPARTMENT SPACES: Mild to moderate tricompartment joint space loss and mild spurring. CARTILAGE: Some cartilaginous loss medial tibiofemoral compartment. BONE MARROW SIGNAL: Small area of diminished T1 and increased T2 signal medial aspect distal medial f emoral condyle. OTHER: Moderate subcutaneous edema superficial infrapatellar level. IMPRESSION: 1. Oblique full-thickness tear posterior horn medial meniscus. 2. Mild MCL sprain injury. 3. Small to moderate sized patellar joint effusion. 4. Small to moderate-sized septated popliteal cyst. 5. Tricompartmental degenerative changes fairly moderate in appearance medial tibiofemoral compartmen t as detailed above. 6. Small focus of abnormal bone marrow edema medial aspect distal medial femoral condyle. [facility], Workstation: [id number], 03/29/2024 10:10 PM
== END | disposition home or self-care (01) ==
LOC: RADMRIMAIN 19:36
PROVIDERS: ATTEND Family Medicine

== ENCOUNTER → 2024-05-18 | Outpatient (CLI) | payer MEDICAID ==
--- NOTE | 2024-05-20 00:34 | US ---
EXAMINATION TYPE: US pelvic complete DATE OF EXAM: 05/18/2024 COMPARISON: CLINICAL INDICATION: Female, 49 years old with history of R10.2 PELVIC AND PERINEAL PAIN; RLQ. Uteru s removed. TECHNIQUE: Transabdominal (TA). Transabdominal grayscale sonographic images of the pelvis were acquired. Doppler imaging: Not performed. FINDINGS: Date of LMP: Unknown EXAM MEASUREMENTS: Right Ovary: 2.5 x 1.4 x 1.2 cm Left Ovary: 2.4 x 1.4 x 1.8 cm 1. Uterus: Surgically absent 2. Endometrium: Surgically absent 3. Right Ovary: wnl 4. Left Ovary: wnl 5. Bilateral Adnexa: no free fluid 6. Posterior cul-de-sac: no free fluid IMPRESSION: 1. No suspicious ultrasound abnormality postsurgical pelvic ultrasound [facility], , 05/20/2024 12:32 AM
== END | disposition home or self-care (01) ==
LOC: RADUSWWP 14:50
PROVIDERS: ATTEND Obstetrics & Gynecology
DX: R10.2 Pelvic and perineal pain (principal)
CPT/HCPCS: 76856

== ENCOUNTER → 2024-05-31 | Outpatient (CLI) | payer MEDICAID ==
--- NOTE | 2024-06-03 13:03 | MM ---
Reason for Exam: Screening (asymptomatic). Last screening mammogram was performed 12 month(s) ago. Patient History: Menarche at age 11. First Full-Term at age 22. Hysterectomy at age 36. Patient has history of breast feeding. Currently using Estrogen, beginning at age 36 for 10 years. Risk Values: Evelia 5 year model risk: 0.9%. NCI Lifetime model risk: 8.0%. Prior Study Comparison: 05/14/2021 Left Diagnostic Mammogram, [facility]. 05/10/2022 Bilateral MG 3D screening mammo w/cad, [facility]. 05/15/2023 Bilateral MG 3D screening mammo w/cad, [facility]. Tissue Density: The breasts are heterogeneously dense, which may obscure small masses. Findings: Analyzed By CAD. Chronic nodularity right breast. Unchanged asymmetric density superior left MLO view. There is no suspicious group of microcalcifications or new suspicious mass in either breast. Overall Assessment: Benign, BI-RAD 2 Management: Screening Mammogram of both breasts in 1 year. Patient should continue monthly self-breast exams. A clinical breast exam by your physician is recommended on an annual basis. This exam should not preclude additional follow-up of suspicious palpable abnormalities. Note on Evelia scores and lifetime risk: 1. A Evelia score greater than 3% is considered moderate risk. If this is the case, consider specialist referral to assess eligibility for a risk reducing agent. 2. If overall lifetime risk for the development of breast cancer is 20% or higher, the patient may qualify for future screening with alternating mammogram and breast MRI. [facility], , 06/03/2024 1:00 PM. Electronically signed and approved by: Milla Kearns M.D. Radiologist
== END | disposition home or self-care (01) ==
LOC: RADMAMWWP 15:57
PROVIDERS: ATTEND Obstetrics & Gynecology
DX: Z12.31 Encounter for screening mammogram for malignant neoplasm of breast (principal); R92.333 Mammographic heterogeneous density, bilateral breasts; N63.10 Unspecified lump in the right breast, unspecified quadrant
CPT/HCPCS: 77063; 77067

== ENCOUNTER → 2024-08-12 | Outpatient (CLI) | payer MEDICAID ==
[2024-08-12 11:32] VITALS: BP 128/92; PULSE 77; RESP 16; TEMP 98.3
--- NOTE | 2024-08-12 13:47 | P.PAINPG ---
PQRS Measure Charge Sheet Comment: A 49 yr old female with a history of severe and chronic neck pain secondary to radiculopathy, spondylosis with facet arthropathy without myelopathy presents today for evaluation. Pt underwent a L RFA C4-C5/ C5-C6 in Dec 2022 where she experienced 80% pain relief x 18 mo s/p procedure. Pain level is provoked at 5- 6/10 in intensity, predominantly axial, constant, localized in the L cervical spine, sharp in character w occasional radiation L of midline. Pain is provoked w over activity. Pain is alleviated with injections, PT x 6 wks in 2020, physician guided home exercise/ stretching regimen every other day since 2020, medications, manual massage, repositioning and rest. Interventional pain procedures completed include L RFA C4-C6 (12/29) Patient is currently on Celebrex, ASA Patient denies any side effects of the medication(s), denies excessive drowsiness or sleepiness, denies suicidal ideation and reports that the current pain medication is helping to control the pain and improve activities of daily living. Patient denies any motor or sensory deficits. Patient denies any fever or night sweats, denies any change in the bowel movements or urination. Physical Examination: -Constitutional: Cooperative. Not in acute distress . - Neurologic: Cranial nerve II to XII intact. No focal neurological deficits. - Psychatric: Alert & oriented x 3. Matching mood & appropriate affect. Judgment and insight intact. - Musculoskeletal: Cervical spine: Muscle bulk/ tone/ strength in the bilateral upper extremities normal Vertebral body tenderness to palpation over Spurling test positive Distraction test positive Facet loading test positive L C4-C5/ C5-C6 Thoracic spine Muscle bulk / tone/ strength in the bilateral paraspinal muscles normal Vertebral body tender to palpation over Facet loading test positive TTP Lumbar spine: Motor bulk/ tone/ strength lower extremities , thigh and legs : 5/5 Deep tendon reflexes : Normal Knee Jerk. Normal Ankle Jerk . Vertebral body tenderness to palpation over Lumbar Facet Loading Test positive Straight Leg Raise: positive at 30 degrees right side/ left side Gaenslen's Test positive Sacral spine : Severe tenderness over the Sacroiliac joint: right side / left side Range of motion: Flexion of the lumbar spine <60 degrees Range of motion: Extension of the lumbar spine <20 degrees Gaenslen's Test positive R / L Sheela test: positive right side / left side Thigh Thrust Test positive R / L Sacral Thrust Test positive R/ L Assessment and plan: Chronic neck pain secondary to radiculopathy, spondylosis with facet arthropathy without myelopathy Recommendation of L RFA C4-C5, C5-C5. Risks, benefits of procedure discussed and patient verbalized understanding. Protocol for discontinuation/continuation of medication surrounding procedure discussed. Minimal anesthesia including Fentanyl and Versed if clinically indicated. All questions answered. I have spent less than 30 minutes on patient care today. Dr Peres was available by phone for the evaluation of this patient. The time was used to review the medical records including relevant urine studies and Prescription history (MAPs), review of the available imaging, evaluation and examination of the patient, coordination of care with the medical staff and if applicable referring physicians, as well as creation of the medical record PQRS Narrative: Hx Alcohol Use (MH) No Home Medications: Ambulatory Orders Ashlyna 1 tab PO DAILY 02/26/22 Aspirin [[place] Aspirin EC] 81 mg PO DAILY 02/26/22 Atorvastatin [Lipitor] 20 mg PO DAILY 02/26/22 Celecoxib [CeleBREX] 200 mg PO BID 02/26/22 Cholecalciferol (Vitamin D3) [Vitamin D3 (125 MCG = 5,000 IU)] 125 mcg PO DAILY 02/26/22 Fexofenadine HCl [Audra Allergy] 180 mg PO DAILY 02/26/22 Gabapentin [Neurontin] 300 mg PO BID 02/26/22 Losartan Potassium [Cozaar] 50 mg PO DAILY 02/26/22 Pantoprazole [Protonix] 40 mg PO DAILY 02/26/22 Liraglutide [Saxenda] 1.8 mg SQ DAILY 12/24/22 Controlled Substance Measures - Controlled Substance Measures Is patient prescribed a controlled substance at discharge?: No
== END ==
LOC: PNWHC3 10:02
PROVIDERS: ATTEND Specialist
DX: M47.22 Other spondylosis with radiculopathy, cervical region (principal); G89.29 Other chronic pain
CPT/HCPCS: 99211

== ENCOUNTER 2024-08-31 06:44 | Day surgery (SDC) | payer MEDICAID ==
[2024-08-31 07:07] VITALS: RESP 16; TEMP 97.2
[2024-08-31] MEDS: LACTATED RINGERS 1,000 ML IV SCH (07:09)
[2024-08-31] MEDS: IV FLUID CONTINUATION 1,000 ML IV ONE (07:09)
[2024-08-31] MEDS ORDERED: fentaNYL (PF) 50 MCG/ML 2 ML AMP ONE (07:48)
[2024-08-31] MEDS ORDERED: MIDAZOLAM 2 MG/2 ML VIAL ONE (07:48)
[2024-08-31] MEDS ORDERED: methylPREDNISolone ACETATE 40 MG/ML 1 ML VIAL ONE (07:48)
[2024-08-31] MEDS ORDERED: ROPIVACAINE 5MG/ML 20ML VIAL ONE (07:48)
--- NOTE | 2024-08-31 08:11 | P.PCN ---
Date of Procedure: 08/31/24 Procedure(s) Performed: PREOPERATIVE DIAGNOSIS: Cervical spondylosis with Facet Arthropathy without myelopathy. POSTOPERATIVE DIAGNOSIS: Cervical spondylosis with Facet Arthropathy without myelopathy. PROCEDURES: Radiofrequency thermocoagulation, left C4, C5, C6 medial branch with Fluroscopy [place](fluoroscopy was available in Radiology department ) (to denervate the facet joint at left C4- 5 , C5- 6 ) ANESTHESIA: Moderate Sedation with Versed 2 mg and fentanyl 200 mcg, (sedation start time 07:48, end time 08:07 ) EBL: Minimal PROCEDURE INDICATION: The patient with neck pain secondary to cervical arthropathy who had more than 50% relief of her pain with previous diagnostic cervical medial branch block. PROCEDURE DESCRIPTION / TECHNIQUE: The patient was seen and identified in the preoperative area. Risks, benefits, complications, and alternatives were discussed with the patient, the patient agreed to proceed with the procedure and signed the consent. IV was started. Vital signs remained stable throughout the procedure. Patient was taken to the OR and time out was completed. The patient was placed in the lateral position on the procedure table ( left side up ). The cervical area was prepped and draped in the usual sterile fashion. Critical pause was taken. Vital signs were closely monitored during the procedure. Conscious sedation was used during the procedure to decrease patients anxiety. Using cross-table lateral fluoroscopy, the centroid of the trapezoid of left C4, C5, and C6 were identified, marked, and localized with 1% lidocaine. Subsequently, a 20 -bp radiofrequency cannula with a 10-mm active tip was advanced guided by fluoroscopy to the centroid of the trapezoid of left C4, C5, and C6 . Needle tip position was confirmed at the centroid of the trapezoids of left C4, C5, and C6 with anteroposterior fluoroscopy. Each site then underwent sensory testing at 50 Hz and 0 to 1 volt and motor testing at 2 Hz and 0 to 3 volt with local stimulation, but no radicular symptoms down the arm. Thereafter each sites underwent radiofrequency thermocoagulation at 80 degrees celsius for 90 seconds after injecting 0.5 ml of PF Ropivacaine 0.5 %. After thermocoagulation, 1 ml of the block solution containing Depo-Medrol 40 mg and 3 mL of preservative-free normal saline was injected at the left C4, C5, and C6 levels after negative aspiration of CSF and blood and with no paresthesias. Al ulas were retracted while injecting lidocaine 1% until the needle is out. Skin was cleansed and bandages were applied. COMPLICATIONS: No acute complications. DISPOSITION / PLANS: The patient was placed in a supine position and transferred to the recovery area in a stable condition for observation and was discharged from the recovery room after meeting discharge criteria. Home discharge instructions given to the patient by the staff. The patient was reexamined prior to discharge. The patient will schedule a follow up in the clinic in 2-4 weeks.
[2024-08-31] MEDS: IV FLUID CONTINUATION 700 ML IV ONE (08:16)
[2024-08-31 08:19] VITALS: BP 141/96
--- NOTE | 2024-08-31 08:24 | FL ---
EXAMINATION TYPE: FL guided pain mgmt statistic DATE OF EXAM: 08/31/2024 CLINICAL INDICATION: Female, 49 years old with history of PAIN; [facility], TECHNIQUE: Fluoroscopy. COMPARISON: None. FINDINGS: Fluoroscopic guidance was provided during pain relief procedure performed by Dr. Peres . A total of 14.0 seconds of fluoroscopic time was utilized during the procedure and 3 spot images a re acquired. Images acquired shows needle localization at several levels in the neck. Degenerative c hange in the cervical spine is present. Total DAP: 0.19645 mGym2. IMPRESSION: As Above. [facility], , 08/31/2024 8:22 AM
[2024-08-31 08:34] VITALS: PULSE 59
== END 2024-08-31 08:52 | disposition home or self-care (01) ==
LOC: ORPAIN 06:44
PROVIDERS: ATTEND Specialist
DX: M47.812 Spondylosis without myelopathy or radiculopathy, cervical region (principal)
CPT/HCPCS: 64633; 64634; J2250; J3010; J2795; J1010; 99152

== ENCOUNTER → 2024-09-16 | Outpatient (CLI) | payer MEDICAID ==
[2024-09-16 11:06] VITALS: BP 125/83; PULSE 87; RESP 16
--- NOTE | 2024-09-16 15:47 | P.PAINPG ---
PQRS Measure Charge Sheet Comment: A 49 yr old female with a history of severe and chronic neck pain secondary to radiculopathy, spondylosis with facet arthropathy without myelopathy presents today for evaluation s/p L RFA C4-C5/ C5-C6. Pt states she experienced 50% pain relief s/p procedure. Pain level is provoked at 5-6/10 in intensity, pr edominantly axial, constant, localized in the L cervical spine, sharp in character w occasional radiation L of midline. Pain is provoked w over activity. Pain is alleviated with injections, PT x 6 wks in 2020, physician guided home exercise/ stretching regimen every other day since 2020, medications, manual massage, repositioning and rest. Interventional pain procedures completed include L RFA C4-C6 x2 (12/29, 08/31) Patient is currently on Celebrex, ASA Patient denies any side effects of the medication(s), denies excessive drowsiness or sleepiness, denies suicidal ideation and reports that the current pain medication is helping to control the pain and improve activities of daily living. Patient denies any motor or sensory deficits. Patient denies any fever or night sweats, denies any change in the bowel movements or urination. Physical Examination: -Constitutional: Cooperative. Not in acute distress . - Neurologic: Cranial nerve II to XII intact. No focal neurological deficits. - Psychatric: Alert & oriented x 3. Matching mood & appropriate affect. Judgment and insight intact. - Musculoskeletal: Cervical spine: Muscle bulk/ tone/ strength in the bilateral upper extremities normal Vertebral body tenderness to palpation over Spurling test positive Distraction test positive Facet loading test positive L C4-C5/ C5-C6 Thoracic spine Muscle bulk / tone/ strength in the bilateral paraspinal muscles normal Vertebral body tender to palpation over Facet loading test positive TTP Lumbar spine: Motor bulk/ tone/ strength lower extremities , thigh and legs : 5/5 Deep tendon reflexes : Normal Knee Jerk. Normal Ankle Jerk . Vertebral body tenderness to palpation over Lumbar Facet Loading Test positive Straight Leg Raise: positive at 30 degrees right side/ left side Gaenslen's Test positive Sacral spine : Severe tenderness over the Sacroiliac joint: right side / left side Range of motion: Flexion of the lumbar spine <60 degrees Range of motion: Extension of the lumbar spine <20 degrees Gaenslen's Test positive R / L Sheela test: positive right side / left side Thigh Thrust Test positive R / L Sacral Thrust Test positive R/ L Assessment and plan: Chronic neck pain secondary to radiculopathy, spondylosis with facet arthropathy without myelopathy Will manage residual pain and may RTC on an as-needed basis. All questions answered. I have spent less than 30 minutes on patient care today. Dr Peres was available by phone for the evaluation of this patient. The time was used to review the medical records including relevant urine studies and Prescription history (MAPs), review of the available imaging, evaluation and examination of the patient, coordination of care with the medical staff and if applicable referring physicians, as well as creation of the medical record PQRS Narrative: Hx Alcohol Use (MH) No Home Medications: Ambulatory Orders Ashlyna 1 tab PO DAILY 02/26/22 Aspirin [[place] Aspirin EC] 81 mg PO DAILY 02/26/22 Celecoxib [CeleBREX] 200 mg PO BID 02/26/22 Cholecalciferol (Vitamin D3) [Vitamin D3 (125 MCG = 5,000 IU)] 125 mcg PO DAILY 02/26/22 Fexofenadine HCl [Audra Allergy] 180 mg PO DAILY 02/26/22 Gabapentin [Neurontin] 300 mg PO BID 02/26/22 Losartan Potassium [Cozaar] 100 mg PO DAILY 02/26/22 Pantoprazole [Protonix] 40 mg PO DAILY 02/26/22 Pravastatin Sodium [Pravachol] 40 mg PO DAILY 08/26/24 hydroCHLOROthiazide 25 mg PO DAILY 08/26/24 Controlled Substance Measures - Controlled Substance Measures Is patient prescribed a controlled substance at discharge?: No
== END ==
LOC: PNWHC3 10:27
PROVIDERS: ATTEND Specialist
DX: M47.812 Spondylosis without myelopathy or radiculopathy, cervical region (principal); G89.29 Other chronic pain
CPT/HCPCS: 99211

== ENCOUNTER → 2024-10-04 | Outpatient (CLI) | payer MEDICAID ==
--- NOTE | 2024-10-04 07:55 | CT ---
EXAMINATION TYPE: CT heart w calcium score DATE OF EXAM: 10/04/2024 COMPARISON: CLINICAL INDICATION: Female, 49 years old with history of Z13.6 ENCOUNTER FOR SCREENING FOR CARDIOVAS CULAR D; PHH, family history of cardiac disease TECHNIQUE: Prospective Gating was used. Slice thickness: 3mm. Density threshold (HU): 130, Pixel threshold: 3, Algorithm: discrete. CT DLP: 94.[address] CTDI: mGy Automated exposure control for dose reduction was used. FINDINGS: CT CALCIUM SCORING Coronary calcium is a marker for plaque (fatty deposits) in a blood vessel or atherosclerosis (harden ing of the arteries). The presence and amount of calcium detected in a coronary artery by the CT sca n, indicates the presence and amount of atherosclerotic plaque. These calcium deposits appear years before the development of heart disease symptoms such as chest pain and shortness of breath. A calcium score is computed for each of the coronary arteries based upon the volume and density of th e calcium deposits. This can be referred to as your calcified plaque burden. It does not correspond directly to the percentage of narrowing in the artery but does correlate with the severity of the un derlying coronary atherosclerosis. RESULTS Region: LM Calcium Score ([place]): 0 Volume (mm3): 0 Mass (g): 0 Region: RCA Calcium Score ([place]): 0 Volume (mm3): 0 Mass (g): 0 Region: LAD Calcium Score ([place]): 0 Volume (mm3): 0 Mass (g): 0 Region: CX Calcium Score ([place]): 0 Volume (mm3): 0 Mass (g): 0 Region: PDA Calcium Score ([place]): 0 Volume (mm3): 0 Mass (g): 0 Total: Calcium Score ([place]): 0 Volume (mm3): 0 Mass (g): 0 TOTAL CALCIUM SCORE: 0 IMPRESSION: Calcium Score: 0 Implication: No identifiable plaque Risk of Coronary Artery Disease: Very low, generally less than 5% CALCIUM SCORE IMPLICATION RISK OF C ORONARY ARTERY DISEASE 0 No identifiable plaque Very low, generally less than 5% 1-10 Minimal identifiable plaque Very unlikely, less than 10% 11-100 Definite, at least mild atherosclerotic plaque Mild or m inimal coronary narrowings likely 101-400 Definite, at least moderate atherosclerotic plaque Mild coronary ar jocy disease highly likely, significant narrowing possible 401 or Higher Extensive atherosclerotic plaque High lik elihood of at least one significant coronary narrowing [facility], , 10/04/2024 7:53 AM
== END | disposition home or self-care (01) ==
LOC: RADCTMAIN 06:54
PROVIDERS: ATTEND Family Medicine
DX: Z13.6 Encounter for screening for cardiovascular disorders (principal); Z82.49 Family history of ischemic heart disease and other diseases of the circulatory system
CPT/HCPCS: 75571